=== PATIENT | female | born 1940 | race Caucasian/White ===

== ENCOUNTER 2020-05-10 23:03 | Emergency (ER) | payer MEDICARE, OTHER ==
[2020-05-10 23:34] LABS: Bilirubin Moderate (Negative); Blood, Urine Large (Negative); Glucose, Urine (Dipstick) Negative (Negative); Ketone, Urine 15 mg/dL (Negative); Leukocyte Large (Negative); Nitrite Positive (Negative); Protein, Urine (Dipstick) > or equal to 300 mg/dL (Neg-Trace); Specific Gravity, Urine 1.025 (1.005-1.030); pH, Urine 5.5 (5.0-9.0)
[2020-05-10 23:35] LABS: Clarity Cloudy (Clear)
[2020-05-10 23:39] LABS: RBC/HPF Greater than 50 HPF (0-3); WBC/HPF Greater Than 50 HPF (0-3)
[2020-05-10 23:41] LABS: Bacteria/HPF Rare-Few HPF (None Seen)
[2020-05-10] MEDS ORDERED: cefTRIAXone\\ROCEPHIN 1 GM VIAL ONE (23:56)
[2020-05-10] MEDS ORDERED: Lidocaine 1% 20 ML MDV ONE (23:56)
== END 2020-05-11 00:27 | disposition home or self-care (01) ==
LOC: MADERS 23:03
DX: N39.0 Urinary tract infection, site not specified (principal); I10 Essential (primary) hypertension
CPT/HCPCS: 81003; 81015; 87086; 96372; 99283; J0696; J2001